=== PATIENT | female | born 1955 | race Caucasian/White ===

== ENCOUNTER → 2018-01-09 | Outpatient (CLI) | payer MEDICARE | END | disposition home or self-care (01) | LOC: RAH 01-08 13:08 | PROVIDERS: ATTEND Neurological Surgery | DX: M96.0 Pseudarthrosis after fusion or arthrodesis (principal); M43.26 Fusion of spine, lumbar region; Z90.49 Acquired absence of other specified parts of digestive tract; Z87.891 Personal history of nicotine dependence; Z90.710 Acquired absence of both cervix and uterus | CPT/HCPCS: 72131 ==

== ENCOUNTER 2018-02-04 05:40 | Day surgery (SDC) | payer MEDICARE ==
[2018-02-02 10:18] VITALS: BP 123/61
[2018-02-02 10:31] LABS: BASOPHILS % (AUTO) 1.5 % (0.0-5.0); EOSINOPHILS % (AUTO) 3.5 % (0.0-8.0); HEMATOCRIT 46.8 % (36-48); LYMPHOCYTES % (AUTO) 26.7 % (21.0-51.0); MEAN CORPUSCULAR HEMOGLOBIN 34.5 pg (27.0-33.0); MEAN CORPUSCULAR VOLUME 101.3 fL (79-99); MONOCYTES % (AUTO) 10.2 % (3.0-13.0); NEUTROPHILS % (AUTO) 58.1 % (40.0-77.0); NUCLEATED RED BLOOD CELLS 0.1 % (0.0-0.19); PLATELET COUNT (AUTO) 285 K/uL (130-400); RED BLOOD CELL COUNT(AUTO) 4.62 MIL/uL (4.00-5.50); RED CELL DISTRIBUTION WIDTH 13.6 % (11.0-15.5); WHITE BLOOD COUNT (AUTO) 8.5 K/uL (4.8-10.8)
[2018-02-02 10:42] LABS: POTASSIUM 4.3 mmol/L (3.5-5.1)
[2018-02-02] MEDS: CEFAZOLIN SODIUM 1 GM VIAL IVP SCH (12:15)
[2018-02-04] VITALS (10 sets, daily range): BP systolic 94–119; BP diastolic 43–73
[~2018-02-04] VITALS: Ht 165.1 cm; Wt 90.1 kg
[~2018-02-04 05:40] MED LIST: CALC-866 PO; IBUP-2076 PO; IRON PO; LEVO100T4 PO; POTASSIUM PO; VENL75 PO; VITAMIN B12 PO
[2018-02-04] MEDS ORDERED: DEXAMETHASONE SOD PHOSPHATE 10MG/ML 1ML VIAL ONE (06:45)
[2018-02-04] MEDS ORDERED: PROPOFOL 10 MG/ML 20ML VIAL IV ONE (06:45)
[2018-02-04] MEDS ORDERED: LIDOCAINE PF 2% 5ML ABBOJECT ONE (06:45)
[2018-02-04] MEDS ORDERED: FENTANYL CITRATE PF 50 MCG/1 ML 2ML VIAL ONE ×2 (06:46→07:19)
[2018-02-04] MEDS ORDERED: ONDANSETRON HCL 4 MG/2 ML VIAL ONE (06:46)
[2018-02-04] MEDS ORDERED: MIDAZOLAM HCL 1 MG/ML 2ML VIAL ONE ×2 (06:46→07:18)
[2018-02-04] MEDS ORDERED: LIDOCAINE HCL MPF 1% 5ML VIAL ONE ×3 (06:48→07:44)
[2018-02-04] MEDS ORDERED: CEFAZOLIN SODIUM 1 GM VIAL ONE (06:49)
[2018-02-04] MEDS ORDERED: SODIUM CHLORIDE 0.9% 1000ML 1,000 ML IV ONE (06:49)
[2018-02-04] MEDS ORDERED: SODIUM BICARB 8.4% 50ML SYRINGE ONE (06:49)
[2018-02-04] MEDS ORDERED: IOPAMIDOL 10 ML VIAL ONE (07:33)
[2018-02-04] MEDS: CEFAZOLIN SODIUM 1 GM VIAL IVP SCH (07:35)
== END 2018-02-04 09:21 | disposition home or self-care (01) ==
LOC: DAH 05:40
PROVIDERS: ATTEND Neurological Surgery
DX: M53.3 Sacrococcygeal disorders, not elsewhere classified (principal); M19.90 Unspecified osteoarthritis, unspecified site; Z79.899 Other long term (current) drug therapy
CPT/HCPCS: 36415; 80051; 85025; A4215; A4606; G0260; J0690; J1030; J1100; J2001; J2250 ×2; J2405; J2704; J3010 ×2; J3490 ×4; J7030 ×2; Q9966; 77002

== ENCOUNTER 2018-04-16 05:50 | Day surgery (SDC) | payer MEDICARE ==
[2018-04-13 09:59] VITALS: BP 135/62
[2018-04-13 10:27] LABS: BASOPHILS % (AUTO) 1.4 % (0.0-5.0); EOSINOPHILS % (AUTO) 2.3 % (0.0-8.0); HEMATOCRIT 44.4 % (36-48); LYMPHOCYTES % (AUTO) 27.9 % (21.0-51.0); MEAN CORPUSCULAR HEMOGLOBIN 34.1 pg (27.0-33.0); MEAN CORPUSCULAR HGB CONC 33.5 g/dL (32.0-36.0); MEAN CORPUSCULAR VOLUME 101.7 fL (79-99); MONOCYTES % (AUTO) 7.7 % (3.0-13.0); NEUTROPHILS % (AUTO) 60.7 % (40.0-77.0); NUCLEATED RED BLOOD CELLS 0.1 % (0.0-0.19); PLATELET COUNT (AUTO) 254 K/uL (130-400); RED BLOOD CELL COUNT(AUTO) 4.36 MIL/uL (4.00-5.50); RED CELL DISTRIBUTION WIDTH 13.1 % (11.0-15.5); WHITE BLOOD COUNT (AUTO) 9.3 K/uL (4.8-10.8)
[~2018-04-16] VITALS: Ht 165.1 cm; Wt 91.9 kg
[2018-04-16] VITALS (11 sets, daily range): BP systolic 103–133; BP diastolic 54–77
[~2018-04-16 05:50] MED LIST changes: +CEFAZOLIN SODIUM 1 GM VIAL IVP SCH; +FERR-82 PO; -IRON PO
[2018-04-16] MEDS ORDERED: LACTATED RINGERS 1000ML 1,000 ML IV ONE (06:05)
[2018-04-16] MEDS ORDERED: CEFAZOLIN SODIUM 1 GM VIAL ONE (06:06)
[2018-04-16] MEDS ORDERED: SODIUM BICARB 8.4% 50ML SYRINGE ONE (06:44)
[2018-04-16] MEDS ORDERED: LIDOCAINE HCL 1% 20 ML VIAL ONE (06:44)
[2018-04-16] MEDS ORDERED: LIDOCAINE HCL 1% MDV 50ML VIAL ONE (06:46)
[2018-04-16] MEDS ORDERED: PROPOFOL 10 MG/ML 20ML VIAL IV ONE (06:57)
[2018-04-16] MEDS ORDERED: LIDOCAINE PF 2% 5ML ABBOJECT ONE (06:57)
[2018-04-16] MEDS ORDERED: DEXAMETHASONE SOD PHOSPHATE 10MG/ML 1ML VIAL ONE (06:58)
[2018-04-16] MEDS ORDERED: FENTANYL CITRATE PF 50 MCG/1 ML 2ML VIAL ONE ×2 (06:59→07:43)
[2018-04-16] MEDS ORDERED: MIDAZOLAM HCL 1 MG/ML 2ML VIAL ONE (06:59)
[2018-04-16] MEDS ORDERED: ONDANSETRON HCL 4 MG/2 ML VIAL ONE (06:59)
[2018-04-16] MEDS ORDERED: ROCURONIUM 10MG/1ML SYR 10 MG/ML ML ONE (07:00)
[2018-04-16] MEDS ORDERED: SODIUM BICARB [NEONATAL] 4.2% 10ML SYG ONE (07:09)
[2018-04-16] MEDS ORDERED: IOPAMIDOL 10 ML VIAL ONE (08:08)
== END 2018-04-16 09:25 | disposition home or self-care (01) ==
LOC: DAH 05:50
PROVIDERS: ATTEND Neurological Surgery
DX: M53.3 Sacrococcygeal disorders, not elsewhere classified (principal); E03.9 Hypothyroidism, unspecified; F41.9 Anxiety disorder, unspecified; Z79.899 Other long term (current) drug therapy; M19.90 Unspecified osteoarthritis, unspecified site
CPT/HCPCS: 36415; 85025; G0260; J0690; J1030; J1100; J2001; J2250; J2405; J2704; J3010 ×2; J3490 ×2; J7030; J7120; Q9966; 77002

== ENCOUNTER 2018-10-14 10:09 | Observation (INO) | payer MEDICARE ==
[~2018-10-14] VITALS: Ht 165.1 cm; Wt 89.9 kg
[~2018-10-14 10:09] MED LIST changes: -CEFAZOLIN SODIUM 1 GM VIAL IVP SCH
[2018-10-14 10:42] LABS: EOSINOPHILS % (AUTO) 2.4 % (0.0-8.0); HEMATOCRIT 46.9 % (36-48); MEAN CORPUSCULAR HEMOGLOBIN 35.1 pg (27.0-33.0); MEAN CORPUSCULAR HGB CONC 34.5 g/dL (32.0-36.0); MEAN CORPUSCULAR VOLUME 101.8 fL (79-99); MONOCYTES % (AUTO) 8.6 % (3.0-13.0); NUCLEATED RED BLOOD CELLS 0.1 % (0.0-0.19); PLATELET COUNT (AUTO) 279 K/uL (130-400); RED BLOOD CELL COUNT(AUTO) 4.61 MIL/uL (4.00-5.50); RED CELL DISTRIBUTION WIDTH 13.4 % (11.0-15.5); WHITE BLOOD COUNT (AUTO) 8.5 K/uL (4.8-10.8)
[2018-10-14 10:51] LABS: CREATININE 0.6 mg/dL (0.5-1.5); POTASSIUM 4.6 mmol/L (3.5-5.1)
[2018-10-14 10:54] LABS: INR 0.9 (0.85-1.15); PARTIAL THROMBOPLASTIN TIME 29.4 SEC (26.3-35.5); PROTHROMBIN TIME 9.5 SEC (9.6-11.6)
[2018-10-14 10:56] LABS: ALBUMIN 3.8 g/dL (3.5-5.0); BILIRUBIN,TOTAL 0.6 mg/dL (0.2-1.0); TOTAL PROTEIN, SERUM 7.9 g/dL (6.0-8.3)
[2018-10-14] MEDS ORDERED: ENOXAPARIN SODIUM 100 MG/1 ML SQ ONE (11:38)
[2018-10-14] MEDS ORDERED: ACETAMINOPHEN 325 MG TAB PO PRN ×2 (12:15)
[2018-10-14] MEDS: APIXABAN 5 MG TABLET PO SCH ×2 (12:15→19:43)
[2018-10-14] MEDS ORDERED: HYDRALAZINE HCL 20 MG/ML VIAL IV PRN (12:15)
[2018-10-14] MEDS ORDERED: ONDANSETRON HCL 4 MG/2 ML VIAL IV PRN (12:15)
[2018-10-14] MEDS ORDERED: APIXABAN 2.5 MG TABLET PO ONE (12:35)
[2018-10-14] MEDS ORDERED: FAMOTIDINE 20MG TAB 20 MG TAB ONE (12:35)
[2018-10-14 14:43] VITALS: BP 123/54
--- NOTE | 2018-10-14 14:45 | NUR ---
RECEIVED PATIENT FROM ER FOR LEFT LOWER EXTREMITY DVT. ADMISSION ASSESSMENT AND DOCUMENTATION DONE. ORIENTED PATIENT TO ROOM. CALL LIGHT WITHIN REACH. BED AT LOW POSITION. SMOKING CESSATION EDUCATION GIVEN. PATIENT SAID THAT SHE DOES NOT PLAN TO STOP SMOKING. ENCOURAGED TO REMAIN ON BEDREST FOR CURRENT DIAGNOSIS.
[2018-10-14] MEDS ORDERED: BUME1TAB17 PO (15:29)
[2018-10-14] MEDS ORDERED: FOLI0.4T2 PO (18:08)
[2018-10-14] MEDS ORDERED: MAGN400T53 PO (18:08)
[2018-10-14] MEDS ORDERED: CHOL200016 PO (18:08)
[2018-10-14] MEDS ORDERED: ZINC SULFATE PO (18:08)
[2018-10-14] MEDS ORDERED: CALC-911 PO (18:08)
[2018-10-14 19:28] VITALS: BP 120/65
[2018-10-14] MEDS: FAMOTIDINE 20MG TAB 20 MG TAB PO SCH (19:45)
--- NOTE | 2018-10-14 22:00 | NUR ---
PT IS STABLE, AA03. PERRLA. AMBULATING IN THE HALLWAYS. STATES NO PAIN. REFUSED PEPCID. RECEIVED HER ELIQUIS DOSE. ROOM AIR. LAST BM 10/14. PENDING CT SCAN PER RADIOLOGY. PT AWARE. NO DISTRESS NOTED.
--- NOTE | 2018-10-14 22:30 | NUR ---
PT PLACED ON STRICT BEDREST FOR 48HRS. INFORMED OF ACTIVITY LEVEL RECOMMENDATIONS, STATES SHE HAS TO AMBULATE DUE TO CHRONIC BACK PAIN. INFORMED FOR RISKS AND DOCTORS ORDERS. PT AWARE AND VERBALIZED UNDERSTANDING.
--- NOTE | 2018-10-14 22:50 | NUR ---
DR. NEVAREZ TALKING TO PT. PT AWARE OF RISK OF AMBULATING. STATED WOULD LIMIT ACTIVITY LEVEL. INFORMED OF HOME MEDICATIONS TO BE RECONCILED.
[2018-10-14 23:28] VITALS: BP 131/64
[2018-10-15 03:50] VITALS: BP 114/76
[2018-10-15 04:19] LABS: HEMATOCRIT 40.4 % (36-48); MEAN CORPUSCULAR HEMOGLOBIN 34.1 pg (27.0-33.0); MEAN CORPUSCULAR HGB CONC 34.1 g/dL (32.0-36.0); NUCLEATED RED BLOOD CELLS 0.2 % (0.0-0.19); PLATELET COUNT (AUTO) 273 K/uL (130-400); RED BLOOD CELL COUNT(AUTO) 4.04 MIL/uL (4.00-5.50); RED CELL DISTRIBUTION WIDTH 13.5 % (11.0-15.5); WHITE BLOOD COUNT (AUTO) 7.4 K/uL (4.8-10.8)
[2018-10-15 04:29] LABS: CREATININE 0.5 mg/dL (0.5-1.5)
--- NOTE | 2018-10-15 05:00 | NUR ---
3.0 POTASSIUM LEVEL REPORT TO Swathi [employer]. NEW ORDERS FOR BMP, MAGNESIUM, POTASSIUM PROTOCOL AND MAGNESIUM PROTOCOL.
[2018-10-15 05:15] LABS: MAGNESIUM 1.7 mg/dL (1.80-2.40)
[2018-10-15] MEDS ORDERED: POTASSIUM CHLORIDE 20MEQ/100ML 100 ML IV PRN (05:15)
[2018-10-15] MEDS ORDERED: POTASSIUM CHLORIDE 10% ELIXIR 20 MEQ/15 ML UDCUP PO PRN (05:15)
[2018-10-15] MEDS ORDERED: LIDOCAINE HCL-MPF 1% 2ML VIAL IVP PRN (05:15)
[2018-10-15] MEDS ORDERED: MAGNESIUM 2GM PREMIX 50ML 50 ML IV PRN (05:15)
[2018-10-15] MEDS: POTASSIUM CHLORIDE 20 MEQ ERTAB PO PRN ×3 (06:00→09:59)
[2018-10-15 07:09] VITALS: BP 108/67
--- NOTE | 2018-10-15 07:10 | NUR ---
ENCOUNTERED PATIENT LAYING ON BED WITH NO C/O PAIN NOR SHORTNESS OF BREATH. FULL ASSESSMENT DONE. INSTRUCTED TO REMAIN ON BEDREST ORDERED BY MD. PATIENT VOICED THAT THIS WILL BE VERY DIFFICULT GIVEN HER HISTORY OF CHRONIC BACK PAIN. TEACH BACK METHOD USED TO EDUCATE PATIENT ON DVT AND ACTIVITY RECOMMENDATIONS DURING THE INITIAL THERAPY. PATIENT VERBALIZED UNDERSTANDING. CALL LIGHT WITHIN REACH. INSTRUCTED TO CALL FOR ASSISTANCE.
[2018-10-15] MEDS: FAMOTIDINE 20MG TAB 20 MG TAB PO SCH ×2 (08:06→21:00)
[2018-10-15] MEDS: APIXABAN 5 MG TABLET PO SCH ×2 (08:06→19:55)
[2018-10-15 11:17] VITALS: BP 119/70
[2018-10-15 15:27] VITALS: BP 116/58
[2018-10-15 19:28] VITALS: BP 117/67
[2018-10-15 23:28] VITALS: BP 132/73
[2018-10-16 04:47] VITALS: BP 112/47
[2018-10-16] MEDS ORDERED: LEVOTHYROXINE 100 MCG TABLET PO SCH (06:30)
[2018-10-16 07:54] VITALS: BP 108/66
[2018-10-16] MEDS ORDERED: BUMETANIDE 1 MG TAB PO SCH (09:00)
[2018-10-16] MEDS ORDERED: CALCIUM 600 + VITAMIN D 400 TABLET PO SCH (09:00)
[2018-10-16] MEDS ORDERED: CHOLECALCIFEROL 2000 UNIT PO SCH (09:00)
[2018-10-16] MEDS ORDERED: VENLAFAXINE HCL 75 MG TAB PO SCH (09:00)
[2018-10-16] MEDS ORDERED: MAGNESIUM OXIDE 400 MG TABLET PO SCH (09:00)
[2018-10-16] MEDS ORDERED: CYANOCOBALAMIN (VITAMIN B-12) 1,000 MCG TABLET PO SCH (09:00)
[2018-10-16] MEDS: FAMOTIDINE 20MG TAB 20 MG TAB PO SCH (09:00)
[2018-10-16] MEDS ORDERED: ZINC SULFATE PO SCH (09:00)
[2018-10-16] MEDS ORDERED: FOLIC ACID 0.4 MG PO SCH (09:00)
[2018-10-16] MEDS ORDERED: APIX5TAB PO ×2 (10:54)
[2018-10-16] MEDS: APIXABAN 5 MG TABLET PO SCH (11:23)
[2018-10-16 11:36] LABS: CREATININE 0.6 mg/dL (0.5-1.5)
--- NOTE | 2018-10-16 11:59 | NUR ---
INFORMED PATIENT THAT HOSPITAL STRONGLY RECOMMENDS THAT SHE DOES NOT DRIVE HERSELF HOME BUT PATIENT REFUSED. SHE SAID THAT SHE FEELS FINE AND THAT DRIVE HOME IS ONLY 21 [address]
== END 2018-10-16 12:10 | disposition home or self-care (01) ==
LOC: EDH 10:09 → EDHIP 12:09 → 2AH 14:31
PROVIDERS: ADMIT Internal Medicine; ATTEND Internal Medicine
DX: I82.432 Acute embolism and thrombosis of left popliteal vein (principal); I82.812 Embolism and thrombosis of superficial veins of left lower extremity; E66.01 Morbid (severe) obesity due to excess calories; F10.20 Alcohol dependence, uncomplicated; F17.210 Nicotine dependence, cigarettes, uncomplicated; E03.9 Hypothyroidism, unspecified; F32.9 Major depressive disorder, single episode, unspecified; Z82.49 Family history of ischemic heart disease and other diseases of the circulatory system; Z79.01 Long term (current) use of anticoagulants; Z86.718 Personal history of other venous thrombosis and embolism; Z79.890 Hormone replacement therapy; Z90.710 Acquired absence of both cervix and uterus; Z91.19 Patient's noncompliance with other medical treatment and regimen; Z98.84 Bariatric surgery status; Z90.49 Acquired absence of other specified parts of digestive tract; Z79.899 Other long term (current) drug therapy
CPT/HCPCS: 36415 ×3; 71250; 80048 ×2; 80053; 83735; 85025; 85027; 85610; 85730; 93005; 93971; 96365; 96366; 99284; G0378 ×46; J1650; J3475

== ENCOUNTER → 2021-10-11 | Outpatient (CLI) | payer MEDICARE ==
[~2021-10-11] MED LIST changes: +APIX5TAB PO; +BUME1TAB7 PO; -CALC-866 PO; +CALC-911 PO; +CHOL200016 PO; -FERR-82 PO; +FOLI0.4T6 PO; -IBUP-2076 PO; +MAGN400T53 PO; -POTASSIUM PO; +ZINC SULFATE PO
== END | disposition home or self-care (01) ==
LOC: RAH 14:01
PROVIDERS: ATTEND Dermatology
DX: Z12.31 Encounter for screening mammogram for malignant neoplasm of breast (principal); L28.2 Other prurigo
CPT/HCPCS: 71046; 77067

== ENCOUNTER → 2022-07-03 | Outpatient (CLI) | payer MEDICARE ==
[~2022-07-03] MED LIST changes: +GADOTERATE MEGLUMINE 10 MMOL/20 ML VIAL IV ONE
== END | disposition home or self-care (01) ==
LOC: RAH 07:51
PROVIDERS: ATTEND Family Medicine Sports Medicine
DX: M48.061 Spinal stenosis, lumbar region without neurogenic claudication (principal); M54.17 Radiculopathy, lumbosacral region
CPT/HCPCS: 72158; A9575

== ENCOUNTER → 2023-03-25 | Outpatient (CLI) | payer MEDICARE ==
[~2023-03-25] MED LIST changes: -GADOTERATE MEGLUMINE 10 MMOL/20 ML VIAL IV ONE
== END | disposition home or self-care (01) ==
LOC: RAH 12:43
PROVIDERS: ATTEND Family Medicine
DX: M75.101 Unspecified rotator cuff tear or rupture of right shoulder, not specified as traumatic (principal); M67.911 Unspecified disorder of synovium and tendon, right shoulder; M65.811 Other synovitis and tenosynovitis, right shoulder; M19.011 Primary osteoarthritis, right shoulder
CPT/HCPCS: 73221

== ENCOUNTER 2023-04-13 11:56 | Emergency (ER) | payer MEDICARE ==
[~2023-04-13] VITALS: Ht 162.6 cm; Wt 83.9 kg
[2023-04-13] MEDS ORDERED: KETOROLAC 15MG/ML VIAL (15MG/ML) IV ONE (13:30)
[2023-04-13] MEDS ORDERED: ONDANSETRON 4MG INJ IVP ONE (13:30)
[2023-04-13] MEDS ORDERED: MORPHINE 4 MG SYG IVP ONE (13:30)
[2023-04-13 14:41] VITALS: BP 135/67; PULSE 69; RESP 18; O2SAT 96
[2023-04-13] MEDS ORDERED: ACET-2079 PO (14:47)
== END 2023-04-13 15:07 | disposition home or self-care (01) ==
LOC: EDH 11:56
DX: M25.551 Pain in right hip (principal); M53.3 Sacrococcygeal disorders, not elsewhere classified; Z79.01 Long term (current) use of anticoagulants; Z79.890 Hormone replacement therapy; Z79.899 Other long term (current) drug therapy; Z90.49 Acquired absence of other specified parts of digestive tract
CPT/HCPCS: 99284; 96374; 96375; 73502; 73562; J2405; J2270; J1885